=== PATIENT | female | born 1975 | race Caucasian/White ===

== ENCOUNTER 2020-10-21 11:29 | Emergency (ER) | payer MEDICAID ==
[2020-10-21] MEDS ORDERED: BUPIVACAINE 0.5% PF 10 ML VIAL SUBQ STA (11:59)
--- NOTE | 2020-10-21 12:00 | ED Physician Documentation ---
PD HPI LOWER EXT INJURY - Stated complaint Stated Complaint: LT LEG INJ - Chief complaint Chief Complaint: Ext Problem - History obtained from History obtained from: Patient - History of Present Illness PD HPI LOW EXT INJURY LOCATION: Left, Lower leg Type of injury: Foreign body Where injury occurred: Home Timing - onset: Today Timing - duration: Hours Timing - details: Abrupt onset, Still present Improved by: Rest, Immobilization Worsened by: Moving, Palpating Associated symptoms: No: Weakness, Numbness, Tingling Contributing factors: No: Anticoagulated Similar symptoms before: Diagnosis (sliver) Recently seen: Not recently seen - Additional information Additional information: 45-year-old female walking in her home bumped her leg against some soup lap inside and had a large sliver to the distal left lateral calf. The sliver broke off at the surface and the patient has retained foreign body. This looks like a fairly good sized sliver and the patient has pain radiating up the side of her calf. Review of Systems Constitutional: denies: Fever Nose: denies: Congestion Throat: denies: Sore throat Cardiac: denies: Chest pain / pressure Respiratory: denies: Dyspnea, Cough GI: denies: Vomiting Skin: reports: Other (fb to calf) Musculoskeletal: denies: Neck pain, Extremity swelling Neurologic: denies: Generalized weakness, Focal weakness, Numbness PD PAST MEDICAL HISTORY - Present Medications Home Medications: Ambulatory Orders Medication Instructions Recorded Confirmed Albuterol Sulfate [Proair Hfa 10/21/20 Inhaler] - Allergies Allergies/Adverse Reactions: Allergies Allergy/AdvReac Type Severity Reaction Status Date / Time Penicillins Allergy Unknown Verified 10/21/20 11:36 Sulfa (Sulfonamide Allergy Unknown Verified 10/21/20 11:36 Antibiotics) PD ED PE NORMAL - Vitals Vital signs reviewed: Yes (hypertensive ) - General General: Alert and oriented X 3, Well developed/nourished, Other (appears anxious) - HEENT HEENT: Atraumatic, PERRL, EOMI - Respiratory Respiratory: No respiratory distress - Derm Derm: Normal color, Warm and dry, No rash - Extremities Extremities: No deformity, Other (There is a wooden foreign body protruding from the skin of the lower calf on the left side laterally ) - Neuro Neuro: Alert and oriented X 3, 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, No motor deficit, No sensory deficit, Normal speech Eye Opening: Spontaneous Motor: Obeys Commands Verbal: Oriented GCS Score: 15 - Psych Psych: Normal mood, Normal affect Results - Vitals Vitals: Vital Signs - 24 hr 10/21/20 10/21/20 11:31 12:48 Temperature 37 C 36.6 C Heart Rate 90 79 Respiratory 20 20 Rate Blood Pressure 152/96 H 148/91 H O2 Saturation 97 100 Oxygen O2 Source Room air Procedures - FB removal FB location: Subcutaneous FB removal preparation: Local anesthesia-specify (bupivicaine) Removal method: Foreceps FB removal aftercare: No complications, Patient tolerated well, Removed successfully PD MEDICAL DECISION MAKING - ED course Complexity details: reviewed old records, re-evaluated patient, considered differential, d/w patient ED course: 45-year-old female with a large splinter in the lateral aspect of her left distal calf has foreign body sensation and pain associated with this foreign body and when it is removed she has relief. She has some brief bleeding associated with this. There was a 3 cm wooden splinter removed intact. Departure - Departure Disposition: 01 Home, Self Care Clinical Impression: Superficial foreign body (sliver) Condition: Stable Instructions: ED Foreign Body Soft Tissue Removed Follow-Up: Your, doctor [Other] Discharge Date/Time: 10/21/20 12:46
[2020-10-21 12:48] VITALS: BP 148/91
== END 2020-10-21 12:46 | disposition home or self-care (01) ==
LOC: ED 11:29
DX: S81.842A Puncture wound with foreign body, left lower leg, initial encounter (principal); W45.8XXA Other foreign body or object entering through skin, initial encounter; W22.8XXA Striking against or struck by other objects, initial encounter; Y92.009 Unspecified place in unspecified non-institutional (private) residence as the place of occurrence of the external cause
CPT/HCPCS: 99281; 99282